=== PATIENT | male | born 1965 | race Caucasian/White ===

== ENCOUNTER → 2024-05-30 | Outpatient (CLI) | payer BC ==
[2024-05-30 13:43] LABS: BASOPHILS ABSOLUTE AUTO 0.07 K/mm3 (0.00-0.23); BASOPHILS PERCENT AUTO 1 % (0-2); EOSINOPHILS ABSOLUTE AUTO 0.09 K/mm3 (0.00-0.68); EOSINOPHILS PERCENT AUTO 1 % (0-6); Hematocrit 43.4 % (37.0-53.0); Hemoglobin 14.5 g/dL (13.5-17.5); IMMATURE GRAN ABSOLUTE AUTO 0.03 K/mm3 (0.00-0.10); IMMATURE GRAN PERCENT AUTO 0 % (0-1); LYMPHOCYTES ABSOLUTE AUTO 2.18 K/mm3 (0.84-5.20); LYMPHOCYTES PERCENT AUTO 21 % (21-46); MONOCYTES ABSOLUTE AUTO 0.88 K/mm3 (0.16-1.47); MONOCYTES PERCENT AUTO 9 % (4-13); Mean Corpuscular HGB 28.4 pg (26.0-34.0); Mean Corpuscular HGB Conc 33.4 g/dL (31.5-36.5); Mean Corpuscular Volume 85 fL (80-100); Mean Platelet Volume 9.6 fL (9.1-12.4); NEUTROPHILS PERCENT AUTO 69 % (41-73); Platelet Count 327 K/mm3 (150-400); RDW Coefficient Variation 12.1 % (11.7-14.2); RDW Standard Deviation 37.5 fL (35.1-46.3); White Blood Cell Count 10.35 K/mm3 (4.00-11.30)
[2024-05-30 13:54] LABS: Albumin, Blood 3.1 g/dL (3.4-5.0); Albumin/Globulin Ratio 0.7 (0.8-1.8); Bilirubin, Total 1.2 mg/dL (0.1-1.0); Bun/Creatinine Ratio 14.4 (12.0-20.0); Calcium, Blood 9.3 mg/dL (8.5-10.1); Creatinine, Blood 1.18 mg/dL (0.60-1.20); Globulin, Blood 4.4 g/dL (2.2-4.0); Potassium, Blood 4.1 mmol/L (3.5-5.5); Total Protein, Blood 7.5 g/dL (6.4-8.2)
== END ==
LOC: LAB SHORT 13:38 → LAB 13:38
PROVIDERS: Physician Assistant
DX: R07.9 Chest pain, unspecified (principal)
CPT/HCPCS: 80053; 84484; 85025

== ENCOUNTER 2024-08-25 06:19 | Day surgery (SDC) | payer BC ==
[2024-08-25] VITALS (10 sets, daily range): BP systolic 129–151; BP diastolic 85–98
[~2024-08-25] VITALS: Ht 177.8 cm; Wt 101.0 kg
[~2024-08-25 06:19] MED LIST: ALLEGRA ALLERG180 MG PO; FARXIGA5 MG PO; METF500 PO
[2024-08-25] MEDS ORDERED: Lactated Ringer's 1,000 ML IV SCH (07:00)
[2024-08-25] MEDS ORDERED: propofoL 20 ML IV ONE (07:01)
[2024-08-25] MEDS ORDERED: Ondansetron HCl 2 MG / ML 2ML Vial ONE (07:01)
[2024-08-25] MEDS ORDERED: Metoclopramide HCl 5MG / ML 2ML Vial ONE (07:01)
[2024-08-25] MEDS ORDERED: Ketorolac Tromethamine 30mg Vial ONE (07:01)
[2024-08-25] MEDS ORDERED: FentaNYL Citrate 50 MCG/ML 2 ML Injection ONE ×2 (07:02→08:00)
[2024-08-25] MEDS ORDERED: Bupivacaine 0.5% HCl 5 MG/ML 30MLVIAL ONE (07:08)
[2024-08-25] MEDS ORDERED: HYDROcodone 5-APAP 325 TAB PO PRN (08:45)
--- NOTE | 2024-08-25 09:55 | NUR ---
DISCHARGE NOTE PT A&OX4, BREATHING RA, ABLE TO COUGH AND DB, TOLERATING PO FLUIDS AND FOOD. PO PAIN MEDICATION GIVEN PER MD ORDERS. NO OTHER COMPLAINTS. ICE PACK PROVIDED. Patient up to Ambulate independently. Gait steady. Discharge instructions reviewed with patient. Patient verbalizes understanding. Copy given to patient to take home. Dressing to procedure site clean, dry, intact with no visible drainage, swelling, erythema or bruising noted. Discharged via wheelchair to private car for ride home.
== END 2024-08-25 09:53 | disposition home or self-care (01) ==
LOC: ORSCMMR 06:19 → ORD 06:19 → ORSCMMR 06:29 → ORD 07:30
PROVIDERS: Surgery
PROC: 07B10ZX Excision of Right Neck Lymphatic, Open Approach, Diagnostic (ICD-10-PCS; principal; 2024-08-25 07:30)
DX: R59.0 Localized enlarged lymph nodes (principal); I10 Essential (primary) hypertension; E11.9 Type 2 diabetes mellitus without complications; Z87.891 Personal history of nicotine dependence; Z79.84 Long term (current) use of oral hypoglycemic drugs; Z79.899 Other long term (current) drug therapy; E66.9 Obesity, unspecified; Z68.31 Body mass index [BMI] 31.0-31.9, adult
CPT/HCPCS: 82947; 87071; 87075; 87205; 88184; 88185; 88305; 88341; 88342; A9270; J1885; J2405; J2704; J2765; J3010; J7120

== ENCOUNTER 2024-09-10 13:08 | Day surgery (SDC) | payer BC ==
[~2024-09-10] VITALS: Ht 180.3 cm; Wt 101.3 kg
[2024-09-10] MEDS ORDERED: Lactated Ringer's 1,000 ML IV ONE ×2 (13:13→13:40)
[2024-09-10] MEDS ORDERED: CeFAZolin Sodium 2,000 MG VIAL ONE (13:13)
[2024-09-10] MEDS ORDERED: Lidocaine HCl/Pf 1% 5 ML VIAL ONE (13:21)
[2024-09-10] MEDS ORDERED: ACYC200 PO (13:41)
[2024-09-10] MEDS ORDERED: Diflucan100 MG PO (13:42)
[2024-09-10] MEDS ORDERED: propofoL 40 ML IV ONE (13:43)
--- NOTE | 2024-09-10 15:12 | NUR ---
09/10/24 1512 Edgardo Hathaway GAVE REPORT TO EMILIA ROBLERO. VSS ON RA. PT C/O 5/10 BURNING PAIN AT INCISION SITE. PAYLOADER MACHINE OPERATOR CALLED FOR PORT PLACEMENT VERIFICATION IN SDU.
[2024-09-10] MEDS ORDERED: FentaNYL Citrate 50 MCG/ML 2 ML Injection ONE (15:33)
== END 2024-09-10 15:59 | disposition home or self-care (01) ==
LOC: ORSCSDS 13:08 → ORD 14:00 → ORSCSDS 15:30
PROVIDERS: Surgery
PROC: 0JH60WZ Insertion of Totally Implantable Vascular Access Device into Chest Subcutaneous Tissue and Fascia, Open Approach (ICD-10-PCS; principal; 2024-09-10 14:00)
DX: C85.90 Non-Hodgkin lymphoma, unspecified, unspecified site (principal); E11.9 Type 2 diabetes mellitus without complications; I10 Essential (primary) hypertension; G47.33 Obstructive sleep apnea (adult) (pediatric); Z79.84 Long term (current) use of oral hypoglycemic drugs; Z79.899 Other long term (current) drug therapy; Z87.891 Personal history of nicotine dependence
CPT/HCPCS: 77001; 82947; C1788; J0690; J1642; J2003; J2704; J3010; J7120